=== PATIENT | female | born 1955 | race Hispanic/Latino ===

== ENCOUNTER 2023-06-01 09:55 | Emergency (ER) | payer OTHER ==
[2023-06-01] MEDS ORDERED: KETOROLAC 30 MG/ML INJ ONE (10:43)
[2023-06-01] MEDS ORDERED: methocarbamoL 500 MG TAB ONE (10:43)
[2023-06-01] MEDS ORDERED: ACETAMINOPHEN 500 MG TAB ONE (10:43)
[2023-06-01] MEDS ORDERED: LIDOCAINE 4% PATCH ONE (10:43)
--- NOTE | 2023-06-01 11:02 | RAD REPORT ---
EXAM DESCRIPTION: RAD - Foot Left 3 View - 06/01/2023 10:52 am CLINICAL HISTORY: injury Pain and swelling COMPARISON: No comparisons FINDINGS: Large calcaneal spurs are present. No fracture, dislocation or aggressive bone lesion.
--- NOTE | 2023-06-01 12:13 | RAD REPORT ---
EXAM DESCRIPTION: RAD - Lumbar Spine 3 Views - 06/01/2023 12:01 pm CLINICAL HISTORY: back pain Radiculopathy COMPARISON: No comparisons FINDINGS: Vertebral body heights appear maintained. No compression fracture noted. Moderate disc thi nning with posterior osteophyte is seen lower lumbar levels. Prominent facet hypertrophy is present a t these levels as well. No spondylolysis or spondylolisthesis. Cholecystectomy. IMPRESSION: Moderately severe lower lumbar degenerative changes.
--- NOTE | 2023-06-01 12:18 | EDPHYS ---
Physician Documentation [facility] Name: Angie Valencia Age: 68 yrs Sex: Female : 1955 Arrival Date: 06/01/2023 Time: 09:55 Bed 8 Private MD: Yennifer Kendrick ED Physician Harshal Franklin HPI: 05/31 10:35 This 68 yrs old Female presents to ER via Ambulatory with complaints of Back ec2 Pain, Leg Pain. 10:35 Patient arrives today for evaluation of low back pain going into the left foot. Patient ec2 reports that she has been experiencing pain has been worsening, history of fibromyalgia, history of sciatica. Reports no falls or injuries or trauma, denies any red flag symptoms. Patient reports she has taken some Tylenol and ibuprofen with improvement in symptoms.. Historical: - Allergies: 10:16 No Known Allergies; nj1 - PMHx: 10:16 Hypertensive disorder; Fibromyalgia; nj1 - Immunization history:: Client reports receiving the 2nd dose of the Covid vaccine. - Infectious Disease History:: Denies. - Social history:: Smoking status: Patient denies any tobacco usage or history of. ROS: 10:35 Constitutional: as per hpi ec2 Exam: 10:35 Constitutional: GEN: NAD Head: atraumatic Eyes: EOMI Ears: External ears are ec2 normal. CV: regular rate LUNGS: no respiratory distress ABD: non-distended SKIN: no evidence of rashes MSK: no evidence of trauma, no C/T/L-spine TTP, positive straight leg raise test on the left side. NEURO: moves all extremities equally Vital Signs: 10:14 BP 152 / 98; Pulse 78; Resp 17; Temp 97.9(TE); Pulse Ox 98% on R/A; Weight 90.72 kg; nj1 Height 5 ft. 5 in. ; Pain 8/10; 10:14 Body Mass Index 33.28 (90.72 kg, 165.1 cm) nj1 10:14 Pain Scale: Adult nj1 MDM: 10:25 Patient medically screened. ec2 10:35 Data reviewed: vital signs. ED course: Patient arrives today for low back pain and left ec2 leg pain. Examination remarkable for well-appearing nontoxic with positive straight leg raise test. Suspect sciatica. Will obtain L-spine x-ray as well as foot x-ray to evaluate for bony pathology. . 05/31 10:35 Order name: Foot Left 3 View XRAY; Complete Time: 11:26 ec2 05/31 11:39 Order name: Lumbar Spine (3 Views) XRAY; Complete Time: 12:17 ec2 Administered Medications: 10:53 Drug: Methocarbamol PO 500 mg PO once Route: PO; kc6 11:52 Follow up: Response: No adverse reaction kc6 10:53 Drug: Acetaminophen PO 1000 mg PO once Route: PO; kc6 11:52 Follow up: Response: No adverse reaction kc6 10:53 Drug: Ketorolac IM 30 mg IM once Route: IM; Site: right deltoid; kc6 11:52 Follow up: Response: No adverse reaction kc6 10:53 Drug: Lidoderm Topical Patch 5 % (700 mg/patch) 1 patches Topical once; leave on for 12 kc6 hours; cover most painful area; may cut into smaller pieces Route: Topical; Site: affected area; 11:52 Follow up: Response: No adverse reaction kc6 Disposition Summary: 06/01/23 12:18 Discharge Ordered Notes: Location: Home ec2 Condition: Stable ec2 Diagnosis - Sciatica, left side ec2 Followup: ec2 - With: Private Physician - When: - Reason: Re-evaluation by your physician Discharge Instructions: - Discharge Summary Sheet ec2 - Sciatica ec2 Forms: - Medication Reconciliation Form ec2 - Thank You Letter ec2 - Antibiotic Education ec2 - Prescription Opioid Use ec2 - Patient Portal Instructions ec2 - Leadership Thank You Letter ec2 Prescriptions: - methocarbamol 500 mg Oral tablet - take 2 tablets ORAL route 4 times per day; 30 tablet; Refills: 0, Product ec2 Selection Permitted Signatures: Dispatcher [employer] Dora Pacheco RN RN kc6 Cortney Chopra RN RN nj1 Harshal Franklin MD MD ec2
--- NOTE | 2023-06-01 12:18 | ER ---
Nurse's Notes [facility] Name: Angie Valencia Age: 68 yrs Sex: Female : 1955 Arrival Date: 06/01/2023 Time: 09:55 Bed 8 Private MD: Yennifer Kendrick Diagnosis: Sciatica, left side Presentation: 05/31 10:14 Chief complaint: Patient states: Left lower back pain that radiates to left leg since nj1 yesterday. Has tried aleve and tylenol with slight relief. Coronavirus screen: Vaccine status: Patient reports receiving the 2nd dose of the covid vaccine. Ebola Screen: Patient denies travel to an Ebola-affected area in the 21 days before illness onset. Initial Sepsis Screen: Does the patient meet any 2 criteria? No. Patient's initial sepsis screen is negative. Does the patient have a suspected source of infection? No. Patient's initial sepsis screen is negative. Risk Assessment: Do you want to hurt yourself or someone else? Patient reports no desire to harm self or others. Onset of symptoms was May 31, 2023. 10:14 Method Of Arrival: Ambulatory [facility] 10:14 Acuity: LEIF 3 nj1 Historical: - Allergies: 10:16 No Known Allergies; nj1 - PMHx: 10:16 Hypertensive disorder; Fibromyalgia; nj1 - Immunization history:: Client reports receiving the 2nd dose of the Covid vaccine. - Infectious Disease History:: Denies. - Social history:: Smoking status: Patient denies any tobacco usage or history of. Screenin:01 [facility] ED Fall Risk Assessment (Adult) History of falling in the last 3 months, kc6 including since admission No falls in past 3 months (0 pts) Confusion or Disorientation No (0 pts) Intoxicated or Sedated No (0 pts) Impaired Gait No (0 pts) Mobility Assist Device Used No (0 pt) Altered Elimination No (0 pt) Score/Fall Risk Level 0 - 2 = Low Risk. Abuse screen: Denies threats or abuse. Denies injuries from another. Nutritional screening: No deficits noted. Tuberculosis screening: No symptoms or risk factors identified. Assessment: 11:02 General: Appears in no apparent distress. uncomfortable, well groomed, well developed, kc6 Behavior is calm, cooperative, appropriate for age. Pain: Complains of pain in left low back and left leg Pain currently is 6 out of 10 on a pain scale. Neuro: Level of Consciousness is awake, alert, obeys commands, Oriented to person, place, time, situation, Appropriate for age. Cardiovascular: Capillary refill < 3 seconds. Respiratory: Airway is patent Trachea midline Respiratory effort is even, unlabored, Respiratory pattern is regular, symmetrical. GI: No signs and/or symptoms were reported involving the gastrointestinal system. : No signs and/or symptoms were reported regarding the genitourinary system. EENT: No signs and/or symptoms were reported regarding the EENT system. Derm: No signs and/or symptoms reported regarding the dermatologic system. Skin is intact, is healthy with good turgor, Skin is pink, warm \T\ dry. Musculoskeletal: No signs and/or symptoms reported regarding the musculoskeletal system. Circulation, motion, and sensation intact. Capillary refill < 3 seconds, Range of motion: intact in all extremities. 11:52 Reassessment: Patient appears in no apparent distress at this time. No changes from kc6 previously documented assessment. Patient and/or family updated on plan of care and expected duration. Pain level reassessed. Patient is alert, oriented x 3, equal unlabored respirations, skin warm/dry/pink. Vital Signs: 10:14 BP 152 / 98; Pulse 78; Resp 17; Temp 97.9(TE); Pulse Ox 98% on R/A; Weight 90.72 kg; nj1 Height 5 ft. 5 in. ; Pain 8/10; 10:14 Body Mass Index 33.28 (90.72 kg, 165.1 cm) nj1 10:14 Pain Scale: Adult nv1 ED Course: 10:00 Patient arrived in ED. mr 10:00 Yennifer Kenrdick is Private Physician. mr 10:15 Harshal Franklin MD is Attending Physician. ec2 10:15 Triage completed. nj1 10:16 Arm band placed on right wrist. nj1 10:33 Dora Wilson, PAWAN is Primary Nurse. kc6 10:54 Foot Left 3 View XRAY In Process Unspecified. EDMS 11:02 Patient has correct armband on for positive identification. Bed in low position. Call kc6 light in reach. Side rails up X2. Client placed on continuous cardiac and pulse oximetry monitoring. NIBP monitoring applied. Warm blanket given. 12:02 Lumbar Spine (3 Views) XRAY In Process Unspecified. EDMS 12:38 No provider procedures requiring assistance completed. Patient did not have IV access kc6 during this emergency room visit. Administered Medications: 10:53 Drug: Methocarbamol PO 500 mg PO once Route: PO; kc6 11:52 Follow up: Response: No adverse reaction kc6 10:53 Drug: Acetaminophen PO 1000 mg PO once Route: PO; kc6 11:52 Follow up: Response: No adverse reaction kc6 10:53 Drug: Ketorolac IM 30 mg IM once Route: IM; Site: right deltoid; kc6 11:52 Follow up: Response: No adverse reaction kc6 10:53 Drug: Lidoderm Topical Patch 5 % (700 mg/patch) 1 patches Topical once; leave on for 12 kc6 hours; cover most painful area; may cut into smaller pieces Route: Topical; Site: affected area; 11:52 Follow up: Response: No adverse reaction kc6 Medication: 12:38 VIS not applicable for this client. kc6 Outcome: 12:18 Discharge ordered by . ec2 12:38 Discharged to home ambulatory, kc6 12:38 Condition: stable 12:38 Discharge instructions given to patient, Instructed on discharge instructions, follow up and referral plans. medication usage, Demonstrated understanding of instructions, follow-up care, medications, Prescriptions given X 1, 12:38 Patient left the ED. kc6 Signatures: Dispatcher [employer] EDCA Tuyet Garcia, Reg Reg mr WilsonDora RN RN kc6 Cortney Chopra RN RN nj1 Harshal Franklin MD MD ec2
[2023-06-01 13:34] VITALS: BP 152/98; TEMP 97.9; O2SAT 98
== END 2023-06-01 12:38 | disposition home or self-care (01) ==
LOC: ER 09:55
DX: M54.32 Sciatica, left side (principal); I10 Essential (primary) hypertension
CPT/HCPCS: 72100; 73630; J2001

== ENCOUNTER 2023-12-29 15:02 | Emergency (ER) | payer OTHER ==
[2023-12-29] MEDS ORDERED: HYDROCODONE/APAP 7.5/325 MG TAB ONE (15:37)
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
[2023-12-29 18:43] VITALS: TEMP 97.1; O2SAT 99
[2023-12-29 18:44] VITALS: BP 151/91
== END 2023-12-29 18:39 | disposition home or self-care (01) ==
LOC: ER 15:02
DX: R42 Dizziness and giddiness (principal); R51.9 Headache, unspecified; V49.49XA Driver injured in collision with other motor vehicles in traffic accident, initial encounter; I10 Essential (primary) hypertension
CPT/HCPCS: 70450; 72125; 72128; 99283